=== PATIENT | male | born 1960 | race Caucasian/White ===

== ENCOUNTER 2022-01-31 19:05 | Emergency (ER) | payer BC ==
[2022-01-31] MEDS ORDERED: Diphtheria,Pertussis(Acell),Tetanus Vaccine 0.5 ML Syringe IM ONE (19:59)
== END 2022-01-31 20:28 | disposition home or self-care (01) ==
LOC: MW.ED 19:05
DX: S61.052A Open bite of left thumb without damage to nail, initial encounter (principal); K21.9 Gastro-esophageal reflux disease without esophagitis; E66.9 Obesity, unspecified; Z79.899 Other long term (current) drug therapy; Z68.35 Body mass index [BMI] 35.0-35.9, adult; Z23 Encounter for immunization; W54.0XXA Bitten by dog, initial encounter
CPT/HCPCS: 90471; 90715; 99283

== ENCOUNTER → 2025-03-02 | Day surgery (SDC) | payer BC ==
[~2025-03-02] MED LIST: Dexamethasone 4 MG/ML 5 ML MDV ONE; Ketorolac 30 MG/ML SDV ONE; Lidocaine 2% 11 ML Jelly Filled Syringe ONE; Ondansetron 4 MG/2 ML SDV ONE; Propofol 200 MG/20 ML SDV ONE; Ropivacaine 0.5% 5 MG/ML 30 ML SDV ONE; ceFAZolin 2 GM in Water For Injection, Sterile 20 ML IVPUSH ONE; dexmedeTOMIDine HCl 200 MCG/2 ML SDV ONE; ePHEDrine 50 MG/ML SDV ONE; fentaNYL 100 MCG/2 ML SDV ONE; propofoL 1,000 MG/100 ML 100 ML ONE
[2025-03-02] MEDS: Lactated Ringers 1,000 ML IV SCH (09:06)
== END | disposition home or self-care (01) ==
LOC: MW.SDS 08:14
PROVIDERS: ATTEND Surgery
DX: K40.90 Unilateral inguinal hernia, without obstruction or gangrene, not specified as recurrent (principal); I10 Essential (primary) hypertension; K21.9 Gastro-esophageal reflux disease without esophagitis; E66.01 Morbid (severe) obesity due to excess calories; Z68.27 Body mass index [BMI] 27.0-27.9, adult; Z79.899 Other long term (current) drug therapy
CPT/HCPCS: 49650; A9270; C1781; J0665; J0690; J1100; J1596; J1885; J2405; J2704; J2795; J3010; J7120; 00830; 64488; J3490